=== PATIENT | female | born 1990 | race Caucasian/White ===

== ENCOUNTER 2018-01-29 22:29 | Emergency (ER) | payer OTHER ==
[2018-01-29 22:37] VITALS: BP 118/68; PULSE 73; TEMP 98.2; BMI 22.6
--- NOTE | 2018-01-29 23:07 | PDOC ---
History of Present Illness - General Chief Complaint: Pain Stated Complaint: STOMACH PAIN/19 WKS Time Seen by Provider: 01/29/18 23:07 History Source: Patient Exam Limitations: Language Barrier - History of Present Illness Initial Comments: 01/29/18 23:30 27 year old Venezuelan speaking female ( 20 week ), with no pmhx presented to the Ed today with one day history of abdominal pain started yesterday 4 pm ,5/10 continuous , pressure like , started in the back around the flanks and moves to her stomach, associated with chilling nausea but no vomiting. The pain worsen with movement. She denies any headache, blurry vision , sore throat , recent cold, she denies any heart racing or chest pain, denies any urinary symptoms, or swelling in her feet. she denies any blood in the stool or urine , no vaginal bleeding or abnormal discharges. PMH: denies PSH: Denies Allergies : NKDA Meds : multivitamins social: denies smoking , alcohol or drug abuse FH: non contributory. Physical exam: General: well nourished in NAD Head: NC/At Neck: supple Lungs: CTA B/L Heart: RRR, No MRG Legs: no edema, +2 DP pulse Abdomen: , with diffuse abodminal tenderness Work up: CBC, CMP Amylase, Lipase , IV fluids 125 cc /hr NS US abdomen IV Tylenol 800 mg 01/30/18 00:19 Past History - Past Medical History Allergies/Adverse Reactions: Allergies Allergy/AdvReac Type Severity Reaction Status Date / Time No Known Allergies Allergy Verified 01/29/18 22:37 Home Medications: Ambulatory Orders Prenat 115/Iron Fum/Folic/Dss [ 19 Tablet] 1 each PO DAILY 01/30/18 - Suicide/Smoking/Psychosocial Hx Smoking History: Never smoked Have you smoked in the past 12 months: No Information on smoking cessation initiated: No Hx Alcohol Use: No Drug/Substance Use Hx: No *Physical Exam - Vital Signs Last Vital Signs Temp Pulse Resp BP Pulse Ox 98.2 F 73 16 118/68 100 01/29/18 22:34 01/29/18 22:34 01/29/18 22:34 01/29/18 22:34 01/29/18 22:34 ED Treatment Course - LABORATORY CBC & Chemistry Diagram: 01/30/18 01:00 01/30/18 01:00 *DC/Admit/Observation/Transfer Diagnosis at time of Disposition: Abdominal pain affecting - Discharge Dispostion Disposition: HOME - Referrals Referrals: Lor Christianson [Primary Care Provider] - - Patient Instructions Printed Discharge Instructions: DI for Abdominal Pain -- Early Additional Instructions: Please follow up with your exotic dancer within 1 week. If you experience worsening pain, fevers, vomiting, vaginal bleeding or discharge, or any other concerning symptoms, return to the ER immediately. - Post Discharge Activity
[2018-01-29] MEDS ORDERED: SODIUM CHLORIDE 1,000 ML IV SCH (23:30)
[2018-01-29] MEDS ORDERED: ACETAMINOPHEN 1000 MG/100 ML VIAL (NON FORMULARY) IVPB ONE (23:59)
[2018-01-30] MEDS ORDERED: ACETAMINOPHEN INJECTION 100 ML IVPB ONE (01:00)
--- NOTE | 2018-01-30 01:12 | PDOC ---
Attending Attestation - Resident Resident Name: Tyrone aPn - ED Attending Attestation I have performed the following: I have examined & evaluated the patient, The case was reviewed & discussed with the resident, I agree w/resident's findings & plan, Exceptions are as noted - HPI HPI: 01/30/18 01:16 The patient is a 27 year old female, , approximately 20 weeks , who presents to the ED complaining of 1 day of abdominal pain. States her abdominal pain is diffuse, pressure like, radiating to the back, ranked 5/10 in severity with associated nausea and chills. She denies vomiting, constipation, or diarrhea. She denies chest pain or shortness of breath. She denies urinary changes. She denies abnormal vaginal bleeding or discharge. - Physicial Exam PE: 01/30/18 01:16 "GENERAL: Awake, alert, and fully oriented, in no acute distress HEAD: No signs of trauma EYES: PERRLA, EOMI, sclera anicteric, conjunctiva clear ENT: Auricles normal inspection, hearing grossly normal, nares patent, oropharynx clear without exudates. Moist mucosa NECK: Nontender, no stepoffs, Normal ROM, supple, no lymphadenopathy, JVD, or masses LUNGS: Breath sounds equal, clear to auscultation bilaterally. No wheezes, and no crackles HEART: Regular rate and rhythm, normal S1 and S2, no murmurs, rubs or gallops ABDOMEN: Soft, gravid, diffusely tender, normoactive bowel sounds. No guarding , no rebound. No masses EXTREMITIES: Normal range of motion, no edema. No clubbing or cyanosis. No cords, erythema, or tenderness NEUROLOGICAL: Cranial nerves II through XII intact. 5/5 strength and sensation in all extremities, Normal speech, normal gait, normal cerebellar function SKIN: Warm, Dry, normal turgor, no rashes or lesions noted. " - Medical Decision Making 01/30/18 01:17 27 F @ 19 weeks with diffuse abdominal cramps. No focal tenderness on exam. Only mild diffuse tenderness. Possible cramps vs round ligament pain. Pt with no vaginal bleeding or discharge to suggest miscarriage. - Labs - US - IVF, tylenol 01/30/18 03:30 Labs wnl US shows viable IUP, no abdominal pathology Awaiting UA result 01/30/18 03:40 UA negative. Pt reassessed - now pain free Pt is well appearing, with normal vitals. Clinically stable for DC at this time. I discussed the physical exam findings, ancillary test results and final diagnoses with the patient. I answered all of the patient's questions. The patient was satisfied with the care received and felt comfortable with the discharge plan and treatment plan. The patient agrees to follow up with the primary care physician within 24-72 hours. 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 If you experience worsening pain, fevers, vomiting, vaginal bleeding or discharge, or any other concerning symptoms, return to the ER immediately. - Post Discharge Activity
[2018-01-30 01:14] LABS: BASO % 0.4 % (0-2.0); HEMATOCRIT 35.1 % (32.4-45.2); HEMOGLOBIN 12.4 GM/dL (10.7-15.3); LYMPH % 18.7 % (8-40); MCH 33.7 pg (25.7-33.7); MCHC 35.4 g/dl (32.0-36.0); MEAN CELL VOLUME 95.2 fl (80-96); MEAN PLT VOLUME 7.1 fl (7.5-11.1); MONO % 5.1 % (3.8-10.2); NEUT % 74.8 % (42.8-82.8); PLATELET COUNT 257 K/MM3 (134-434); RBC 3.68 M/mm3 (3.60-5.2); RDW 14.1 % (11.6-15.6); WHITE BLOOD COUNT 9.4 K/mm3 (4.0-10.0)
[2018-01-30 03:17] LABS: ANION GAP 8 (8-16); BLOOD UREA NITROGEN 6 mg/dL (7-18); CALCIUM 8.5 mg/dL (8.5-10.1); CHLORIDE 108 mmol/L (98-107); CO2 22 mmol/L (21-32); CREATININE 0.3 mg/dL (0.55-1.02); GLUCOSE,RANDOM 94 mg/dL (74-106); LIPASE 76 U/L (73-393); POTASSIUM 3.9 mmol/L (3.5-5.1); SODIUM 138 mmol/L (136-145)
[2018-01-30 03:18] LABS: ALBUMIN 3.2 g/dl (3.4-5.0); ALK PHOS 67 U/L (45-117); BILIRUBIN,TOTAL 0.1 mg/dL (0.2-1.0); SGOT/AST 11 U/L (15-37); SGPT/ALT 18 U/L (12-78); TOT PROT 6.6 g/dl (6.4-8.2)
[2018-01-30 03:21] LABS: URINE APPEARANCE CLEAR; URINE BILIRUBIN NEGATIVE (<2.0 mg/dL); URINE BLOOD NEGATIVE (NEGATIVE); URINE COLOR STRAW; URINE GLUCOSE (UA) NEGATIVE (NEGATIVE); URINE KETONE NEGATIVE (NEGATIVE); URINE LEUK ESTERASE NEGATIVE (NEGATIVE); URINE NITRITE NEGATIVE (NEGATIVE); URINE PROTEIN NEGATIVE (NEGATIVE); URINE UROBILINOGEN NEGATIVE mg/dL (0.2-1.0)
--- NOTE | 2018-01-30 21:30 | EKG ---
Test Reason : Blood Pressure : / mmHG Vent. Rate : 069 BPM Atrial Rate : 069 BPM P-R Int : 154 ms QRS Dur : 068 ms QT Int : 418 ms P-R-T Axes : 043 043 024 degrees QTc Int : 447 ms NORMAL SINUS RHYTHM NONSPECIFIC T WAVE ABNORMALITY ABNORMAL ECG NO PREVIOUS ECGS AVAILABLE Confirmed by URSULA LOPEZ MD ([id number]) on 01/30/2018 9:30:10 PM Referred By: Confirmed By:URSULA LOPEZ MD
== END 2018-01-30 04:17 | disposition home or self-care (01) ==
LOC: JER 22:29
PROC: 3E0337Z Introduction of Electrolytic and Water Balance Substance into Peripheral Vein, Percutaneous Approach (ICD-10-PCS; principal; 2018-01-29)
PROC: 3E033NZ Introduction of Analgesics, Hypnotics, Sedatives into Peripheral Vein, Percutaneous Approach (ICD-10-PCS; 2018-01-29)
DX: O26.892 Other specified pregnancy related conditions, second trimester (principal); R10.30 Lower abdominal pain, unspecified; Z3A.20 20 weeks gestation of pregnancy
CPT/HCPCS: 36415; 76705-TC; 76815; 80053; 81003; 82550; 83690; 84484; 84702; 85025; 93005; 93010; 96361; 96374; 99283-25; J0131; J7030

== ENCOUNTER 2024-01-24 17:46 | Emergency (ER) | payer SELFPAY ==
[2024-01-24 18:17] VITALS: BP 129/57; PULSE 66; RESP 18; TEMP 97.7; BMI 22.3
[2024-01-24 19:11] LABS: BASO % 0.5 % (0-2.0); EOS % 1.5 % (0-4.5); HEMATOCRIT 38.7 % (32.4-45.2); HEMOGLOBIN 13.6 GM/dL (10.7-15.3); LYMPH % 38.4 % (8-40); MCHC 35.2 g/dl (32.0-36.0); MEAN CELL VOLUME 90.8 fl (80-96); MEAN PLT VOLUME 6.5 fl (7.5-11.1); MONO % 8.8 % (3.8-10.2); NEUT % 50.8 % (42.8-82.8); PLATELET COUNT 324 10^3/uL (134-434); RBC 4.26 M/mm3 (3.60-5.2); WHITE BLOOD COUNT 6.8 K/mm3 (4.0-10.0)
[2024-01-24 19:22] LABS: BLOOD UREA NITROGEN 14.1 mg/dL (7-18); CALCIUM 8.7 mg/dL (8.5-10.1)
[2024-01-24 19:25] LABS: CREATININE 0.5 mg/dL (0.55-1.3)
[2024-01-24 19:27] LABS: BILIRUBIN,TOTAL 0.3 mg/dL (0.2-1); TOT PROT 7.4 g/dl (6.4-8.2)
== END 2024-01-24 19:42 | disposition home or self-care (01) ==
LOC: JERFT 17:46
DX: R21 Rash and other nonspecific skin eruption (principal); B35.0 Tinea barbae and tinea capitis
CPT/HCPCS: 36415; 80053; 84703; 85025; 99283-25